=== PATIENT | male | born 1960 | race American Indian/Alaskan Native ===

== ENCOUNTER 2016-12-21 07:16 | Outpatient (CLI) | payer MEDICARE, MEDICAID ==
[2016-12-21 08:26] LABS: Blood Urea Nitrogen 11 mg/dL (9-20)
--- NOTE | 2016-12-26 10:49 | Magnetic Resonance Report ---
MR PELVIS WITH AND WITHOUT CONTRAST History: Major osseous defect in the right pelvic region, right iliac bone mass. Technique: Multisequence, multiplanar MRI before and after IV contrast. Findings: A well marginated ovoid lesion is identified in the right posterior iliac bone measuring 3.5 x 1.3 x 3.7 cm. This lesion demonstrates homogeneous decreased T1 signal, increased T2 signal and homogeneous enhancement following IV gadolinium. There is no evidence for surrounding edema or periosteal reaction. This lesion has a narrow zone of transition. No associated soft tissue component. Overall, this has a benign appearance on MR. The remainder of the bony pelvis demonstrates normal signal. There is no evidence for fracture or joint pathology. The pelvic viscera are within normal limits. No inflammatory changes, fluid, mass or adenopathy. Impression: 3.5 x 1.3 x 3.7 cm benign-appearing right posterior iliac bone lesion as outlined above. This does not have the appearance of a bone metastasis or malignant bone tumor. Correlation with radiographs would be helpful if they are available. The etiology of this lesion is not clearly evident on this study. This lesion should be accessible for CT-guided biopsy if needed. I would recommend surveillance.
== END 2016-12-21 07:17 | disposition home or self-care (01) ==
LOC: MRI 07:16
PROVIDERS: ATTEND Physical Medicine & Rehabilitation
DX: M89.751 Major osseous defect, right pelvic region and thigh (principal)
CPT/HCPCS: 36415; 72197; 82565; 84520; A9577

== ENCOUNTER 2019-06-23 08:24 | Outpatient (CLI) | payer OTHER | END 2019-06-23 08:25 | disposition home or self-care (01) | LOC: PF 08:24 | PROVIDERS: ATTEND Internal Medicine | DX: J44.9 Chronic obstructive pulmonary disease, unspecified (principal); F17.210 Nicotine dependence, cigarettes, uncomplicated | CPT/HCPCS: 94010 ==

== ENCOUNTER 2019-06-28 05:14 | Emergency (ER) | payer MEDICARE ==
[2019-06-28 05:25] VITALS: BP 146/69
[2019-06-28] MEDS ORDERED: IBUPROFEN 600 MG TAB PO ONE (08:21)
[2019-06-28] MEDS ORDERED: ACETAMINOPHEN 325 MG TAB PO ONE (08:21)
--- NOTE | 2019-06-28 08:24 | Emergency Department Report ---
ED General Adult HPI - General Chief complaint: Back Pain/Injury Stated complaint: BACK/SHOULDER PAIN Time Seen by Provider: 06/28/19 08:14 Source: patient Mode of arrival: Ambulatory Limitations: No Limitations - History of Present Illness Initial comments: This is a 59-year-old gentleman, right-hand dominant, not known to this provider previously. He presents to the ER with complaint of bilateral nontraumatic chronic shoulder pain, present for months. He also endorses chronic paralumbar back pain, which does not radiate, present for months. He endorses no weakness or numbness, no focal extremity weakness, and denies complaint of bladder or bowel retention, incontinence. He is currently pursuing disability. -: Gradual Location: back, left, right, upper extremity Quality: aching Consistency: intermittent Improves with: rest Worsens with: movement - Related Data Previous Rx's Medication Instructions Recorded Last Taken Type Acetaminophen [Non-Aspirin Extra 500 mg PO Q6HR PRN #30 tablet 06/28/19 Unknown Rx Strength] Ibuprofen [Motrin] 600 mg PO Q8H PRN #30 tablet 06/28/19 Unknown Rx Allergies Allergy/AdvReac Type Severity Reaction Status Date / Time Latex, Natural Rubber Allergy Swelling Verified 06/28/19 05:18 POWDER/LATEX GLOVES Allergy Rash Uncoded 12/21/16 07:18 ED Review of Systems ROS: Stated complaint: BACK/SHOULDER PAIN Other details as noted in HPI Constitutional: denies: fever Eyes: denies: eye discharge ENT: denies: congestion Cardiovascular: denies: syncope Gastrointestinal: denies: abdominal pain, nausea, vomiting Genitourinary: denies: dysuria Musculoskeletal: back pain, arthralgia, myalgia Neurological: denies: numbness, paresthesias ED Past Medical Hx - Past Medical History Previous Medical History?: Yes Hx Hypertension: Yes Hx Diabetes: Yes Hx Arthritis: Yes - Surgical History Past Surgical History?: Yes Additional Surgical History: Knee surgery - Social History Smoking Status: Current Every Day Smoker Substance Use Type: None - Medications Home Medications: Home Medications Medication Instructions Recorded Confirmed Last Taken Type Acetaminophen [Non-Aspirin Extra 500 mg PO Q6HR PRN #30 tablet 06/28/19 Unknown Rx Strength] Ibuprofen [Motrin] 600 mg PO Q8H PRN #30 tablet 06/28/19 Unknown Rx ED Physical Exam - General Limitations: No Limitations General appearance: alert, in no apparent distress - Head Head exam: Present: atraumatic, normocephalic - Eye Eye exam: Present: normal appearance, EOMI. Absent: nystagmus - ENT ENT exam: Present: normal exam, normal orophraynx, mucous membranes moist, normal external ear exam - Neck Neck exam: Present: normal inspection, full ROM. Absent: tenderness, meningismus - Respiratory Respiratory exam: Present: normal lung sounds bilaterally. Absent: respiratory distress - Cardiovascular Cardiovascular Exam: Present: regular rate, normal rhythm, normal heart sounds. Absent: bradycardia, tachycardia, irregular rhythm, systolic murmur, diastolic murmur, rubs, gallop - GI/Abdominal GI/Abdominal exam: Present: soft. Absent: distended, tenderness, guarding, rebound, rigid, pulsatile mass - Rectal Rectal exam: Present: deferred - Extremities Exam Extremities exam: Present: normal inspection, full ROM, other (2+ pulses noted in the bilateral upper, lower extremities. There is no long bone tenderness. Musculoskeletal compartments are soft. The pelvis is stable.). Absent: pedal edema, joint swelling, calf tenderness - Back Exam Back exam: Present: normal inspection, full ROM, paraspinal tenderness. Absent: tenderness, CVA tenderness (R), CVA tenderness (L), muscle spasm, vertebral tenderness - Neurological Exam Neurological exam: Present: alert (downgoing plantar reflexes bilaterally. Sensation intact to light touch and pinch upper and lower extremities bilaterally), normal gait, other (there is no facial droop. The tongue is midline. Extraocular movements are intact bilaterally. Patient speaking in full complete sentences. Shoulder shrug is intact bilaterally. Hearing is grossly intact bilaterally. Visual acuity intact to finger counting and color perception at a close distance. 5/5 strength 4 extremities. Sensation intact to light touch in 4 extremities.). Absent: motor sensory deficit - Psychiatric Psychiatric exam: Present: normal affect, normal mood - Skin Skin exam: Present: warm, dry, intact, normal color. Absent: rash ED Course Vital Signs 06/28/19 05:23 Temperature 98.6 F Pulse Rate 66 Respiratory 18 Rate Blood Pressure 146/69 O2 Sat by Pulse 99 Oximetry ED Medical Decision Making - Medical Decision Making Vital Signs 06/28/19 05:23 Temperature 98.6 F Pulse Rate 66 Respiratory 18 Rate Blood Pressure 146/69 O2 Sat by Pulse 99 Oximetry Differential diagnosis, including not limited to: Arthritis, rotator cuff injury, paralumbar back pain, muscular skeletal back pain, shoulder pain Assessment and plan: 59-year-old gentleman with full range of motion to bilateral shoulders, with a complaint of bilateral shoulder pain for 1 month, and reproducible paralumbar back pain which does not radiate. He is afebrile with reassuring vital signs. He walks with a steady gait. He has no neurovascular deficits on examination. Exam not consistent with fracture, dislocation, compartment syndrome, AAA, epidural compression syndrome, or other emergent condition. The patient does not appear to have an emergent medical condition at this time. He'll need to follow up with outpatient primary care and/or orthopedics. We discussed recommendations for physical therapy, and avoidance of heavy lifting. Critical care attestation.: If time is entered above; I have spent that time in minutes in the direct care of this critically ill patient, excluding procedure time. ED Disposition Clinical Impression: Shoulder pain, Back pain Disposition: - TO HOME OR SELFCARE Is pt being admited?: No Does the pt Need Aspirin: No Condition: Stable Additional Instructions: Rest, avoid heavy lifting, and avoid strenuous physical activities. Participate in physical activities as tolerated. Take Tylenol 650 mg [id number], every 4-6 hours as needed for pain; maximum daily dose 2 g per 24 hours. Patient may alternate this with Motrin, 600 mg by mouth with food, every 6 hours, as needed for pain. Recommend following up with an outpatient orthopedic doctor, or primary care doctor for evaluation for physical therapy. Return to emergency room right away with new, worsened, different symptoms, or symptoms not present on initial emergency room evaluation. Prescriptions: Ibuprofen [Motrin] 600 mg PO Q8H PRN #30 tablet PRN Reason: Pain Acetaminophen [Non-Aspirin Extra Strength] 500 mg PO Q6HR PRN #30 tablet PRN Reason: Pain , Severe (7-10) Referrals: DARRICK EUGENE MD [Staff Physician] - 3-5 Days [facility] [Provider Group] - 3-5 Days
== END 2019-06-28 08:47 | disposition home or self-care (01) ==
LOC: ED 05:14
DX: M25.511 Pain in right shoulder (principal); M25.512 Pain in left shoulder; M54.9 Dorsalgia, unspecified; Z91.040 Latex allergy status; I10 Essential (primary) hypertension; E11.9 Type 2 diabetes mellitus without complications; F17.200 Nicotine dependence, unspecified, uncomplicated; Z79.1 Long term (current) use of non-steroidal anti-inflammatories (NSAID)
CPT/HCPCS: 99282

== ENCOUNTER 2019-07-01 07:23 | Outpatient (CLI) | payer OTHER ==
--- NOTE | 2019-07-01 08:11 | XRay Report ---
Lumbosacral spine-3 views INDICATION: BACK PAIN. Chronic low back pain COMPARISON: None. IMPRESSION: Normal alignment. 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 No acute osseous or soft tissue abnormality. Signer Name: Dami Cleaning MD Signed: 07/01/2019 8:07 AM Workstation Name: [id number]
== END 2019-07-01 07:24 | disposition home or self-care (01) ==
LOC: XRAY 07:23
PROVIDERS: ATTEND Internal Medicine
DX: M47.817 Spondylosis without myelopathy or radiculopathy, lumbosacral region (principal); Z91.040 Latex allergy status; Z88.8 Allergy status to other drugs, medicaments and biological substances
CPT/HCPCS: 72100